=== PATIENT | female | born 1950 | race Caucasian/White ===

== ENCOUNTER → 2024-02-25 10:32 | Outpatient (REF) | payer MEDICARE, OTHER, SELFPAY | LOC: HWWDC 10:32 | PROVIDERS: ATTENDING PHYSICIAN Obstetrics & Gynecology; FAMILY PHYSICIAN Internal Medicine | DX: Z12.31 Encounter for screening mammogram for malignant neoplasm of breast (principal) | CPT/HCPCS: 77063; 77067 ==

== ENCOUNTER 2025-01-07 09:35 | Emergency (ER) | payer MEDICARE, OTHER, SELFPAY ==
[2025-01-07 09:37] VITALS: BP 163/106
[2025-01-07 10:30] VITALS: BP 136/81; BMI 24.2
--- NOTE | 2025-01-07 10:48 | ED.GENMED ---
History of Present Illness
General
Chief Complaint: Fall
Source: patient and spouse
Time Seen by Provider: 01/07/25 10:12
History of Present Illness
History of Present Illness:
75-year-old female presents the emergency room for evaluation after falling. Patient was walking her dog when she tripped on an uneven surface. She struck her chin onto the concrete ground. She suffered a laceration to her chin. She also was
complaining of a headache and neck pain. No loss of consciousness. No numbness or tingling or weakness. Patient denies taking any oral anticoagulants.
Past History
Past History
ED Past Medical History: HTN; Negative Asthma, Hypercholesterolemia or NIDDM
ED Past Surgical History: None
Social History
Tobacco: Non-smoker
Alcohol: Occasional
Personal:
Living: with family
Phy Exam
Physical Exam
Physical Exam:
General: Awake, Alert, Oriented X3. No acute distress.
Vitals: unremarkable
Head: Atraumatic
Face: Approximately 1.2 cm semicircular laceration noted on the chin with some surrounding abrasion
Eyes: Pupils equal, EOMI
Throat: Airway intact, no exudates
Neck: Trachea midline mild diffuse tenderness to palpation
Lungs: Clear and equal b/l
Heart: Regular rate, no murmurs
Abd: Soft, Nontender, No pulsatile mass
Neuro: Cranial nerves intact, muscle strength equal bilaterally
Skin: Warm, dry, no rash
Extremities: pulses equal b/l, no edema
Course
Orders/Labs/Results
Orders:
Orders
01/07/25 10:47
CT Cervical Spine W/o Iv Contr Urgent
Comment:
Reason For Exam: neck pain s/p fall
CT Head W/o Iv Contrast Urgent
Comment:
Reason For Exam: fall, head inury
Acetaminophen [Tylenol] 1,000 mg PO NOW STA
Vital Signs
Initial and Last Documented VS:
Initial Vital Signs
Temp Pulse Resp BP Pulse Ox
98.3 F 83 16 163/106 96
01/07/25 09:37 01/07/25 09:37 01/07/25 09:37 01/07/25 09:37 01/07/25 09:37
Last Documented Vital Signs
Temp Pulse Resp BP Pulse Ox
98.2 F 74 16 131/79 99
01/07/25 10:30 01/07/25 12:47 01/07/25 12:47 01/07/25 12:47 01/07/25 12:47
Procedures
Laceration Closure
Chin:
Status of Wound: clean
Size of Wound in cm: 1.2
Description of Wound Edges: ragged
Preparation: cleaned with saline
Anesthesia: 1% Lidocaine with epi
Revision/Debridement: routine- no revision
Wound exploration: explored to base- no FB
Type of Closure: single layer closure
Skin Closure Material: 6-0 nylon
Number of sutures: 5
*Pulse Oximetry
SaO2: 100
Oxygen Mode of Delivery: Room air
Patient hypoxic: no
*Critical Care Note
Total Time (30-74mins, 75-104mins- exclusive of procedures): Not Applicable
ED Attending Note
-
Portions of this chart may have been created with voice recognition software.� Occasional wrong word or��sound alike� substitutions may have occurred due to the inherent limitations of voice recognition software.
Discharge Plan
Departure
Patient Disposition: Home (Routine Discharge)
Date of Disposition: 01/07/25
Time of Disposition: 12:31
Patient with high blood pressure during this ER visit?: No
Condition: Good
Discharge Problem:
Chin laceration
Instructions: Head Injury in Adults (DC), Laceration Repair With Stitches (DC)
Prescriptions:
No Action
nortriptyline 10 mg Capsule
40 mg PO HS
wrwgdzflfa-expojuw-hkbqytaz 50-325-40 mg Capsule
1 cap PO Q4H PRN (Reason: migraine)
pantoprazole [address] For Susp In Packet
40 mg PO BID
cholecalciferol (vitamin D3) [Vitamin D3] 50 mcg (2,000 unit) Tablet
50 mcg PO DAILY
enalapril maleate 20 mg Tablet
20 mg PO BID
pyridoxine (vitamin B6) 100 mg Tablet
100 mg PO DAILY
Align (B.infantis) 4 mg Capsule
4 mg PO DAILY
omega 3-fcj-npa-fish oil [Fish Oil] 1,200 (144-216) mg Capsule
1 cap PO DAILY
Osteo Bi-Flex Triple Strength 750 mg-644 mg- 30 mg-1 mg Tablet
2 tab PO DAILY
turmeric 400 mg Capsule
400 mg PO DAILY
mecobalamin (vitamin B12)
1,000 mcg PO DAILY
acetaminophen 325 mg Tablet
650 mg PO Q4HPRN PRN (Reason: mild pain) Qty: 60 0RF
ibuprofen [IBU] 600 mg tablet
600 mg PO Q6H PRN (Reason: pain) Qty: 60 0RF
Referrals:
Bashir Meyers MD [Family Provider, Internal Medicine]
Activity Restrictions/Additional Instructions:
Stitches should be removed in 5 days. Follow up with your primary care provider.
Interventions
Interventions:
*Risk Screen - Suicide Last Done: 01/07/25 09:37
*General Assessment Last Done: 01/07/25 09:37
*Neglect/Abuse Screening Last Done: 01/07/25 09:37
*ED- Fall Risk Assessment Last Done: 01/07/25 09:37
*ED COVID-19 Vaccine History Last Done: 01/07/25 09:37
*Nursing Disposition Last Done: 01/07/25 12:47
ED-Musculoskeletal Assessment Last Done: 01/07/25 10:30
ED- Neurological Assessment Last Done: 01/07/25 10:30
ED-Skin Assessment Last Done: 01/07/25 10:30
Discharge Date and Time
Discharge Date/Time: 01/07/25 12:53
Print Language: BELIZEAN
--- NOTE | 2025-01-07 12:07 | EDRN ---
pt refusing Tylenol at this time as that medication does nothing for her, reports she either take her own medications in her bag. Pt was asked not to do so till provider is asked it that is ok.
[2025-01-07 12:47] VITALS: BP 131/79
== END 2025-01-07 12:53 | disposition home or self-care (01) ==
LOC: EMR 09:35
PROVIDERS: EMERGENCY PHYSICIAN Emergency Medicine; FAMILY PHYSICIAN Internal Medicine
DX: S01.81XA Laceration without foreign body of other part of head, initial encounter (principal); S00.81XA Abrasion of other part of head, initial encounter; R51.9 Headache, unspecified; M54.2 Cervicalgia; W01.0XXA Fall on same level from slipping, tripping and stumbling without subsequent striking against object, initial encounter; Y93.K1 Activity, walking an animal; I10 Essential (primary) hypertension; Z88.8 Allergy status to other drugs, medicaments and biological substances
CPT/HCPCS: 99284; 12011; 70450; 72125